=== PATIENT | female | born 1965 | race Caucasian/White ===

== ENCOUNTER 2016-04-04 13:13 | Day surgery (SDC) | payer BC ==
[2016-04-04 13:38] VITALS: BP 136/84; PULSE 83; RESP 20; TEMP 98; O2SAT 96
[2016-04-04] MEDS ORDERED: NAPR220T95 PO (13:42)
[2016-04-04] MEDS ORDERED: FURO20TA PO (13:42)
[2016-04-04] MEDS ORDERED: BUPIVACAINE HCL PF 0.75% 30 ML VIAL ONE (14:14)
[2016-04-04] MEDS ORDERED: TRIAMCINOLONE ACETONIDE 40 MG/ML VIAL ONE (14:14)
[2016-04-04 14:55] VITALS: BP 144/77; PULSE 89; RESP 16; O2SAT 94
--- NOTE | 2016-04-04 14:57 | PD.RAD ---
Post Procedure Progress Note Pre Procedure Diagnosis: (1) Chronic low back pain Post Procedure Diagnosis: (1) Chronic low back pain Procedure Date: Apr 04, 2016 Supervising Radiologist: Martín Jose JR Proceduralist/Assist: Leonie Orozco, RT(R)(CV), RT Harrison(R) Anesthesia: Local Plan of Activity Patient to Unit: [facility] Patient Condition: Good See PACS Report for procedural detail/treatment Spinal Procedure Facet Injection L4-L5, L5-S1 Findings: Patient with central lower lumbar spine pain. No radiculopathy or laterality. Physical exam and history do NOT fit with L3 radiculopathy. Talked with patient concerning MRI and history. Suggested bilateral L4-5 and L5-S1 facet injections as opposed to NRI. This can be done as a diagnostic tool as well as for therapy. This was performed without issue. Jr. Damon,Martín Alves MD Apr 04, 2016 14:57
--- NOTE | 2016-04-04 16:06 | RADRPT ---
EXAM DATE/TIME: 04/04/2016 14:23 [facility] COMPARISON: No previous studies available for comparison. INDICATIONS : Patient with history of chronic low back pain in need of facet injection. Patient has lower back pain . Patient's clinical symptomatology and physical exam findings do not support an L3 radiculopathy. MEDICAL HISTORY : HLD, Thyroid disorder SURGICAL HISTORY : Abdominoplasty ENCOUNTER: Initial ACUITY: 4 - 6 months PAIN SCORE: 4/10 LOCATION: Bilateral low back pain FLUORO TIME: 7.1 minutes ACCESS LEVEL: Left L4-L5 MEDICATION(S): 1.) 0.5 cc triamcinolone (Kenalog) IA 2.) 1 cc bupivacaine (Marcaine) IA 3.) 1 cc Lidocaine IA RESPONSE: Pre procedure pain level was 4/10. Post procedure pain level was 0/10. PROCEDURE : Fluoroscopically guided facet injection. The risks, benefits and alternatives to the procedure were explained and verbal and written consent w as obtained. The site was prepped in sterile fashion. Full sterile technique was used, including ca p, mask, sterile gloves and gown and a large sterile sheet. Hand hygiene and 2% chlorhexidine and/or betadine/alcohol prep was utilized per protocol for cutaneous antisepsis. The skin and subcutaneous tissues were infiltrated with local anesthetic solution. With fluoroscopic guidance the targeted facet was localized and positive contrast was injected to con firm intra-articular position. The prescribed medications were injected into the facet joint. The pat ient's pre and post procedure pain levels were recorded. CONCLUSION: Uncomplicated fluoroscopically guided left L4-L5 facet injection as above. Martín Jose Jr., MD on April 04, 2016 at 16:03 Board Certified Radiologist. This report was verified electronically.
--- NOTE | 2016-04-04 16:07 | RADRPT ---
EXAM DATE/TIME: 04/04/2016 14:23 [facility] COMPARISON: No previous studies available for comparison. INDICATIONS : Patient with history of chronic low back pain in need of facet injection. The patient's clinical pict ure and physical exam findings are not consistent with L3 radiculopathy. MEDICAL HISTORY : HLD, Thyroid disorder SURGICAL HISTORY : Abdominoplasty ENCOUNTER: Initial ACUITY: 4 - 6 months PAIN SCORE: 4/10 LOCATION: Bilateral low back FLUORO TIME: 7.1 minutes ACCESS LEVEL: Left L5-S1 MEDICATION(S): 1.) 0.5 cc triamcinolone (Kenalog) IA 2.) 1 cc bupivacaine (Marcaine) IA 3.) 1 cc Lidocaine IA RESPONSE: Pre procedure pain level was 4/10. Post procedure pain level was 0/10. PROCEDURE : Fluoroscopically guided facet injection. The risks, benefits and alternatives to the procedure were explained and verbal and written consent w as obtained. The site was prepped in sterile fashion. Full sterile technique was used, including ca p, mask, sterile gloves and gown and a large sterile sheet. Hand hygiene and 2% chlorhexidine and/or betadine/alcohol prep was utilized per protocol for cutaneous antisepsis. The skin and subcutaneous tissues were infiltrated with local anesthetic solution. With fluoroscopic guidance the targeted facet was localized and positive contrast was injected to con firm intra-articular position. The prescribed medications were injected into the facet joint. The pat ient's pre and post procedure pain levels were recorded. CONCLUSION: Uncomplicated fluoroscopically guided left L5-S1 facet injection as above. Martín Jose Jr., MD on April 04, 2016 at 16:05 Board Certified Radiologist. This report was verified electronically.
--- NOTE | 2016-04-04 16:07 | RADRPT ---
EXAM DATE/TIME: 04/04/2016 14:23 [facility] COMPARISON: No previous studies available for comparison. INDICATIONS : Patient with history of chronic low back pain in need of facet injection. Patient's symptomatology, c linical picture, and physical exam findings are not consistent with an L3 radiculopathy. MEDICAL HISTORY : HLD, Thyroid disorder SURGICAL HISTORY : Abdominoplasty ENCOUNTER: Initial ACUITY: 4 - 6 months PAIN SCORE: 4/10 LOCATION: Bilateral low back FLUORO TIME: 7.1 minutes ACCESS LEVEL: Right L4-L5 MEDICATION(S): 1.) 0.5 mg triamcinolone (Kenalog) IA 2.) 1 cc bupivacaine (Marcaine) IA 3.) 1 cc Lidocaine IA RESPONSE: Pre procedure pain level was 4/10. Post procedure pain level was 0/10. PROCEDURE : Fluoroscopically guided facet injection. The risks, benefits and alternatives to the procedure were explained and verbal and written consent w as obtained. The site was prepped in sterile fashion. Full sterile technique was used, including ca p, mask, sterile gloves and gown and a large sterile sheet. Hand hygiene and 2% chlorhexidine and/or betadine/alcohol prep was utilized per protocol for cutaneous antisepsis. The skin and subcutaneous tissues were infiltrated with local anesthetic solution. With fluoroscopic guidance the targeted facet was localized and positive contrast was injected to con firm intra-articular position. The prescribed medications were injected into the facet joint. The pat ient's pre and post procedure pain levels were recorded. CONCLUSION: Uncomplicated fluoroscopically guided right L4-L5 facet injection as above. Martín Jose Jr., MD on April 04, 2016 at 16:04 Board Certified Radiologist. This report was verified electronically.
--- NOTE | 2016-04-04 16:08 | RADRPT ---
EXAM DATE/TIME: 04/04/2016 14:23 [facility] COMPARISON: No previous studies available for comparison. INDICATIONS : Patient with history of chronic low back pain in need of facet injection. The patient's clinical pict ure and visible exam findings are not consistent with an L3 radiculopathy. MEDICAL HISTORY : HLD, Thyroid disorder SURGICAL HISTORY : Abdominoplasty ENCOUNTER: Initial ACUITY: 4 - 6 months PAIN SCORE: 4/10 LOCATION: Bilateral low back FLUORO TIME: 7.1 minutes ACCESS LEVEL: Right L5-S1 MEDICATION(S): 1.) 0.5 cc triamcinolone (Kenalog) IA 2.) 1 cc bupivacaine (Marcaine) IA 3.) 1 cc Lidocaine IA RESPONSE: Pre procedure pain level was 4/10. Post procedure pain level was 0/10. PROCEDURE : Fluoroscopically guided facet injection. The risks, benefits and alternatives to the procedure were explained and verbal and written consent w as obtained. The site was prepped in sterile fashion. Full sterile technique was used, including ca p, mask, sterile gloves and gown and a large sterile sheet. Hand hygiene and 2% chlorhexidine and/or betadine/alcohol prep was utilized per protocol for cutaneous antisepsis. The skin and subcutaneous tissues were infiltrated with local anesthetic solution. With fluoroscopic guidance the targeted facet was localized and positive contrast was injected to con firm intra-articular position. The prescribed medications were injected into the facet joint. The pat ient's pre and post procedure pain levels were recorded. CONCLUSION: Uncomplicated fluoroscopically guided right L5-S1 facet injection as above. Martín Jose Jr., MD on April 04, 2016 at 16:06 Board Certified Radiologist. This report was verified electronically.
== END 2016-04-04 15:10 | disposition home or self-care (01) ==
LOC: HROP 13:13 → HRIP 13:16 → HROP 15:10
PROVIDERS: ATTEND Family Medicine
DX: M54.5 Low back pain (principal); G89.29 Other chronic pain; E78.5 Hyperlipidemia, unspecified; E07.9 Disorder of thyroid, unspecified
CPT/HCPCS: 64493; 64494; J3301